=== PATIENT | male | born 1965 | race Two or more races ===

== ENCOUNTER 2024-03-14 18:46 | Emergency (ER) | payer SELFPAY ==
[~2024-03-14] VITALS: Ht 180.3 cm; Wt 91.0 kg
[2024-03-14 18:52] VITALS: O2SAT 0
[2024-03-14 18:55] VITALS: BP 0/0; PULSE 0; RESP 0
== END 2024-03-14 19:07 ==
LOC: ER 18:46
DX: I46.9 Cardiac arrest, cause unspecified (principal); E11.9 Type 2 diabetes mellitus without complications; I10 Essential (primary) hypertension
CPT/HCPCS: 99291; Z7610